=== PATIENT | male | born 1945 | race Caucasian/White ===

== ENCOUNTER 2016-08-03 11:51 | Inpatient (IN) | payer OTHER, SELFPAY ==
[~2016-08-03] VITALS: Ht 177.8 cm; Wt 86.2 kg
--- NOTE | ~2016-08-03 | EKG ---
[address] [address] ELECTROCARDIOGRAM REPORT Name: DEEPAK QUINTERO Room #: 441-P ADM IN M.R.#: [id number] Admission: 08/03/16 Attend Phys: Dennise Umanzor Discharge: Date of : 49 Report #: [id number] THIS REPORT FOR: //name// [facility] ED Test Date: 2016-08-03 Test Time: 12:57:16 Pat Name: DEEPAK QUINTERO Department: Room: [facility] Gender: M Hr Leader: [id number] : 1945 Requested By: Efren Poole Order Number: [id number] MD: Cliff Cooper Measurements Intervals [place] Rate: 142 P: [place]: QRS: -20 QRSD: 95 T: 35 QT: 325 QTc: 500 Interpretive Statements Atrial fibrillation with rapid V-rate Borderline left axis deviation Borderline low voltage, extremity leads Anteroseptal infarct, old No previous ECG available for comparison Electronically Signed On 08-03-2016 16:49:01 INFRASTRU[employer]URE SECURITY ARCHITECT by Cliff Cooper [email or web address] <ELECTRONICALLY SIGNED> By: Cliff Cooper MD 08/03/16 1649 [id number] Cliff Cooper MD /KENDRA
--- NOTE | ~2016-08-03 | 2DMMODE ---
[facility] [place] [address] 2 D/M-MODE ECHOCARDIOGRAM Name: DEEPAK QUINTERO Room #: 441-P [facility] IN .R.#: [id number] Admission: 08/03/16 Attend Phys: Dennise Price Discharge: Date of : 49 Date of Service: 08/04/16 0717 Report #: [id number] THIS REPORT FOR: //name// Transthoracic Echocardiography Ordering physician: Dennise Umanzor Referring Parvez Obrien Jetinder physician: [employer] Consultant: Sridevi Chairez Indications/History: Swelling, Afib. Hx: ETOH, tobacco abuse, HTN BP: 88 / 57 HR: 95bpm Height: 70in Weight: 200.6lb Study data: M-mode, complete 2D, complete spectral Doppler, and color Doppler. Location: Echo laboratory. Routine. Image quality was adequate. 2D measurements Normal Normal LVID ED 48.2mm 36-57 IVS ED 13.3mm 6-11 LVID ES 27.4mm 23-40 LVPW ED 13mm 6-11 LA volume 56ml/m2 16-28 AoRoot diam 35.5mm 21-37 index ED LVOT diameter 22mm 18-23 Findings: Left ventricle: The cavity size was normal. Wall thickness was increased in a pattern of mild LVH. Systolic function was normal. The estimated ejection fraction was in the range of 60% to 65%. Wall motion was normal. Right ventricle: The cavity size was mildly dilated. Systolic function was normal. Right atrium: The atrium was dilated. Left atrium: The atrium was dilated. Volume index: 56ml/m2 (S). Aortic valve: Mildly sclerotic leaflets. Doppler: There was no stenosis. Trivial regurgitation. Peak velocity: [facility] [address] [place] [address] 2 D/M-MODE ECHOCARDIOGRAM Name: DEEPAK QUINTERO Room #: 441-P ADM IN M.R.#: [id number] Admission: 08/03/16 Attend Phys: Dennise Price Discharge: Date of : 49 Date of Service: 08/04/16 0717 Report #: [id number] 192.4cm/s (S). Peak gradient: 14.8mm Hg (S). Mitral valve: Mildly thickened leaflets . Calcified submitral apparatus Doppler: There was no evidence for stenosis. Mild regurgitation. Peak E-wave velocity: 160.5cm/s. Peak gradient: 10.3mm Hg (D). Tricuspid valve: Structurally normal valve. Doppler: There was no evidence for stenosis. Moderate regurgitation. Regurgitant peak velocity: 284cm/s. Peak RV-RA gradient: 32mm Hg (S). Pulmonic valve: Structurally normal valve. Doppler: There was no evidence for stenosis. Mild regurgitation. Pericardium: A trace pericardial effusion was identified. Aorta: Aortic root: The aortic root was normal in size. Pulmonary artery: Systolic pressure was estimated to be 40mm Hg. Diastolic function: The study was not technically sufficient to allow evaluation of LV diastolic dysfunction due to atrial fibrillation. Systemic veins: Inferior vena cava: The vessel was dilated; the respirophasic diameter changes were blunted (< 50%). Conclusions 1. Left ventricle: Systolic function was normal. The estimated ejection fraction was in the range of 60% to 65%. Wall motion was normal. 2. Aortic valve: Mildly sclerotic leaflets. There was no stenosis. Trivial regurgitation. 3. Mitral valve: Mildly thickened leaflets . Calcified submitral apparatus Mild regurgitation. 4. Pericardium, extracardiac: A trace pericardial effusion was identified. 5. Pulmonary arteries: Systolic pressure was estimated to be 40mm Hg. <ELECTRONICALLY SIGNED> By: Jimmie Mijares MD, FAC 08/04/16 1001 0717 100 Jimmie Mijares MD, [facility] /jak
--- NOTE | ~2016-08-03 | EKG ---
[address] [address] ELECTROCARDIOGRAM REPORT Name: DEEPAK QUINTERO Room #: 441-P ADM IN M.R.#: [id number] Admission: 08/03/16 Attend Phys: Dennise Umanzor Discharge: Date of : 49 Report #: [id number] THIS REPORT FOR: //name// [facility] ED Test Date: 2016-08-03 Test Time: 13:06:59 Pat Name: DEEPAK QUINTERO Department: Room: [facility] Gender: M Psychiatric Lpn: [id number] : 1945 Requested By: Efren Poole Order Number: [id number] MD: Cliff Cooper Measurements Intervals [place] Rate: 100 P: 258 [place]: 149 QRS: -41 QRSD: 104 T: -7 QT: 378 QTc: 488 Interpretive Statements Ectopic atrial tachycardia, unifocal Left axis deviation Electronically Signed On 08-03-2016 16:50:04 GENETICS TEACHER by Cliff Cooper [email or web address] <ELECTRONICALLY SIGNED> By: Cliff Cooper MD 08/03/16 1650 1306 1306 MD LEONARD Franco
[~2016-08-03 11:51] MED LIST: ACETAMINOPHEN325 M1 PO; ALDACTONE100 MG PO; ASPIRIN325 PO; ATIVAN1 MG PO; BENADRYL ITCH28.3 G1 TP; BENADRYL25 MG PO; FLEXERIL PO; HYDROXYZINE HCL25 M2; IBUPROFEN 400400 M1; IBUPROFEN 600600 M1; IBUPROFEN200 M2 PO; MAG-OX 400 TAB400 MG PO; MEDROLDOSEPACK PO; MULTIVITAMINS1 EAC7 PO; NALTREXONE HCL50 MG PO; NEURONTIN 300300 M1 PO; NOHOMEMEDICATIONS; NORCO 5-325 TA1 EACH PO; PREDNISONE50 MG PO; PREVALITE PACKE1 PKT
[2016-08-03 11:52] VITALS: BP 110/76
[2016-08-03 12:40] LABS: HEMATOCRIT 36.6 % (42.0-52.0); HEMOGLOBIN 12.7 gm/dL (14.0-18.0); MCH 37.5 pg (26.0-34.0); MCHC 34.7 % (28.0-37.0); MCV 108.3 fL (80.0-100.0); PLATELET COUNT 117 thou/uL (150-400); RBC 3.38 mil/uL (4.50-6.00); RDW 13.6 % (10.5-14.5); WBC 6.4 thou/uL (4.0-11.0)
[2016-08-03 12:44] LABS: MANUAL DIFF YES
[2016-08-03 13:04] LABS: ABSOLUTE NEUTROPHILS 3.8 thou/uL (1.4-8.2); PLATELET ESTIMATE NORMAL; TOTAL CELL COUNT 100
[2016-08-03 14:36] LABS: INR 1.6; PROTIME 16.4 Seconds (9.3-11.4)
[2016-08-03 14:43] LABS: ALBUMIN 1.9 g/dL (3.4-5.0); ALKALINE PHOSPHATASE 155 U/L (46-116); ANION GAP 5 mmol/L (7-16); BUN 11 mg/dL (7-18); CALCIUM 8.2 mg/dL (8.5-10.1); CHLORIDE 98 mmol/L (98-107); CO2 31 mmol/L (21-32); CREATININE 0.8 mg/dL (0.6-1.3); GLUCOSE 106 mg/dL (70-99); MAGNESIUM 1.7 mg/dL (1.8-2.4); NT-PRO BRAIN NAT PEPTIDE 741 pg/mL (<300); PHOSPHORUS 2.9 mg/dL (2.5-4.9); POTASSIUM 3.3 mmol/L (3.5-5.1); SGOT 69 U/L (15-37); SGPT 25 U/L (30-65); SODIUM 134 mmol/L (136-145); TOTAL BILIRUBIN 7.3 mg/dL (<0.1-1.0); TOTAL PROTEIN 7.8 g/dL (6.4-8.2); TROPONIN-I < 0.04 ng/mL (<0.04-0.07)
[2016-08-03 14:44] LABS: ACETAMINOPHEN < 2 ug/mL (10-30)
[2016-08-03 14:45] LABS: SALICYLATE < 2.8 mg/dL (2.8-20.0)
[2016-08-03 15:04] LABS: NT-PRO BRAIN NAT PEPTIDE 741 pg/mL (<300)
[2016-08-03 15:18] VITALS: BP 98/76
[2016-08-03 20:30] VITALS: BP 108/74
[2016-08-03 22:36] LABS: MAGNESIUM 1.5 mg/dL (1.8-2.4); POTASSIUM 3.2 mmol/L (3.5-5.1)
[2016-08-04 01:45] VITALS: BP 91/47
[2016-08-04 06:30] VITALS: BP 102/63
[2016-08-04 06:57] LABS: HEMATOCRIT 34.5 % (42.0-52.0); HEMOGLOBIN 11.9 gm/dL (14.0-18.0); MCH 37.3 pg (26.0-34.0); MCHC 34.4 % (28.0-37.0); MCV 108.5 fL (80.0-100.0); RBC 3.18 mil/uL (4.50-6.00); RDW 13.9 % (10.5-14.5); WBC 5.6 thou/uL (4.0-11.0)
[2016-08-04 07:09] LABS: CREATININE 0.9 mg/dL (0.6-1.3); POTASSIUM 3.5 mmol/L (3.5-5.1)
[2016-08-04 07:10] LABS: CALCIUM 7.9 mg/dL (8.5-10.1)
[2016-08-04 07:11] LABS: INR 1.8
[2016-08-04 07:16] LABS: PROTIME 18.3 Seconds (9.3-11.4)
[2016-08-04 07:18] LABS: ALBUMIN 1.7 g/dL (3.4-5.0); TOTAL BILIRUBIN 5.4 mg/dL (<0.1-1.0); TOTAL PROTEIN 7.3 g/dL (6.4-8.2)
[2016-08-04 08:58] VITALS: BP 88/57
[2016-08-04 12:57] VITALS: BP 121/50
[2016-08-04 16:52] VITALS: BP 111/40
[2016-08-04 20:19] VITALS: BP 133/57
[2016-08-04 21:09] LABS: MAGNESIUM 1.4 mg/dL (1.8-2.4); POTASSIUM 3.7 mmol/L (3.5-5.1)
[2016-08-05 04:57] VITALS: BP 112/70
[2016-08-05 05:50] LABS: ALBUMIN 1.6 g/dL (3.4-5.0); CALCIUM 7.6 mg/dL (8.5-10.1); CREATININE 0.8 mg/dL (0.6-1.3); PHOSPHORUS 2.5 mg/dL (2.5-4.9); POTASSIUM 3.5 mmol/L (3.5-5.1)
[2016-08-05 09:29] VITALS: BP 125/62
[2016-08-05 12:26] VITALS: BP 111/61
[2016-08-05 16:35] VITALS: BP 138/79
[2016-08-05 20:27] VITALS: BP 96/67
[2016-08-06 04:33] VITALS: BP 104/61
[2016-08-06 09:19] VITALS: BP 114/70
[2016-08-06 13:06] VITALS: BP 103/68
[2016-08-06] MEDS ORDERED: PRADAXA75 MG PO (13:57)
[2016-08-06] MEDS ORDERED: DIGOXIN250 MCG PO (13:58)
[2016-08-06] MEDS ORDERED: CARDIZEM CD 18180 M3 PO (13:58)
[2016-08-06] MEDS ORDERED: LEVAQUIN 500 M500 M2 PO (14:00)
[2016-08-06 14:05] VITALS: BP 103/68
[2016-09-04] MEDS ORDERED: PLAVIX 75 MG TA75 M1 PO (12:54)
== END 2016-08-06 15:00 | disposition home or self-care (01) | DRG 291 ==
LOC: ER 11:51 → 4S 14:00 → EROBS 14:00 → 4S 15:51
PROVIDERS: Emergency Medicine; Hospitalist
DX: I11.0 Hypertensive heart disease with heart failure (principal); J18.9 Pneumonia, unspecified organism; K76.6 Portal hypertension; I48.91 Unspecified atrial fibrillation; I50.33 Acute on chronic diastolic (congestive) heart failure; F10.10 Alcohol abuse, uncomplicated; K74.60 Unspecified cirrhosis of liver; F17.210 Nicotine dependence, cigarettes, uncomplicated; M19.071 Primary osteoarthritis, right ankle and foot; Z96.1 Presence of intraocular lens; Z79.82 Long term (current) use of aspirin; Z79.899 Other long term (current) drug therapy; Z82.49 Family history of ischemic heart disease and other diseases of the circulatory system; Z91.81 History of falling; Z98.42 Cataract extraction status, left eye; Z98.41 Cataract extraction status, right eye; Z88.0 Allergy status to penicillin
CPT/HCPCS: 10100

== ENCOUNTER → 2017-05-16 | Outpatient (CLI) | payer OTHER ==
[~2017-05-16] MED LIST changes: +ASPIR 8181 MG PO; +CARDIZEM CD 18180 M3 PO; +CARDIZEM CD180 MG PO; +DIGOXIN250 MCG PO; +LEVAQUIN 500 M500 M2 PO; +PLAVIX 75 MG TA75 M1 PO; +PRADAXA75 MG PO
== END ==
LOC: CAT 15:40
DX: M48.061 Spinal stenosis, lumbar region without neurogenic claudication (principal)

== ENCOUNTER 2017-09-28 14:22 | Inpatient (IN) | payer OTHER ==
[~2017-09-28] VITALS: Ht 177.8 cm; Wt 86.4 kg
--- NOTE | ~2017-09-28 | HC ---
[facility] [place] [address] CONSULTATION Name: DEEPAK QUINTERO Room #: 364-P [facility] IN M.R.#: [id number] Admission: 09/28/17 Attend Phys: Abdoulaye Hernandez MD Discharge: 09/30/17 Date of : 49 Report #: [id number] THIS REPORT FOR: //name// CC: Abdoulaye Obrien DATE OF SERVICE: 09/29/2017 HISTORY OF PRESENT ILLNESS: The patient is a 72-year-old male with a history of end-stage liver disease due to alcohol abuse. Family members are present at this time. The patient is fairly lethargic, although he will try to answer some questions. He was brought into the hospital as he has been having decline both in mental status as well as increasing lower extremity edema and abdominal distention apparently. He has had previous paracentesis in the past. He has been on diuretics at home. He apparently is not following a low sodium diet or watching his liquid intake. In fact, his friend who checks on him on a daily basis, sometimes several times a day states he is actively drinking large amounts of alcohol at this time on a daily basis. He does report some abdominal distention and pain at this time. Apparently, he has also been having more frequent falls lately. There has been no history of bleeding. Also, it appears his appetite has been very poor. PAST MEDICAL HISTORY: End-stage liver disease, history of alcohol abuse, hypertension, ascites, encephalopathy, previous history of detached retina, umbilical hernia repair and right inguinal hernia repair. MEDICATIONS AT HOME: [place], p.r.n. Cardizem and aspirin. REVIEW OF SYSTEMS: Extremely limited due to the patient's lethargy but as per HPI. FAMILY HISTORY: Negative for colon cancer. SOCIAL HISTORY: Long history of alcohol abuse and again the patient is actively consuming alcohol on a daily basis at this point. Family members have also expressed he has no interest in discontinuing alcohol. No tobacco at this time. ALLERGIES: To PENICILLIN. PHYSICAL EXAMINATION: VITAL SIGNS: Temperature 97.6, pulse 109, blood pressure 91/58 and respiratory rate is 16. GENERAL: He is very lethargic. He will answer some questions but he is not oriented to time and place. HEENT: Sclerae are icteric. Oropharynx clear. There is muscle wasting noticed [address] [address] CONSULTATION Name: DEEPAK QUINTERO Room #: 364-P [facility] IN M.R.#: [id number] Admission: 09/28/17 Attend Phys: Abdoulaye Hernandez MD Discharge: 09/30/17 Date of : 49 Report #: [id number] in his face. NECK: Supple. CARDIOVASCULAR: Regular rate. CHEST: Clear to auscultation anteriorly bilaterally. ABDOMEN: Distended. He is not tense, but he has significant ascites. He is mildly tender to palpation. EXTREMITIES: Plus 1 pitting edema in the lower extremities with apparent venous stasis changes as well. LABORATORY DATA: Sodium 123, potassium 5.6, chloride 91, bicarbonate 24, BUN 57 and creatinine 1.8. Yesterday's creatinine was 1.7 and glucose 108. Total bilirubin 5.0. Alkaline phosphatase 120, ALT is 23, total protein 7.6 and albumin 1.6. Ammonia level 55 today and 54 yesterday. INR 1.7. WBC is 12.0, hemoglobin is 11.6 and platelet count is 217. KUB yesterday on admission, bilateral perihilar interstitial infiltrates, possible edema versus multifactorial pneumonia, moderate left pleural effusion and no evidence of mechanical obstruction. ASSESSMENT AND PLAN: 1. End-stage liver disease, long history of alcohol abuse. The patient continues to have daily alcohol use per family members. Overall, prognosis fairly poor. I had a long discussion with the family. At this point, we would recommend diuretics, is doing daily weights, monitoring electrolytes and volume status closely. His creatinine is up. This could be a sign of a hepatorenal. He has a Talbot in place. We will likely proceed with a paracentesis on Sunday for comfort measures as well. Need to follow his labs closely over the next 1-2 days to get a better idea how the patient is trending. 2. Encephalopathy. He is on lactulose at this time. We will add Xifaxan as well. Continue to monitor ammonia levels. This may be causing more lethargy. 3. History of alcohol abuse, need to watch for signs of withdrawal. Thank you for allowing me to participate in his care. <ELECTRONICALLY SIGNED> By: Olayinka Faria MD 10/08/17 0922 [id number] [id number] Olayinka Faria MD /nt
--- NOTE | ~2017-09-28 | HC ---
[facility] [place] [address] CONSULTATION Name: DEEPAK QUINTERO Room #: 364-P [facility] IN M.R.#: [id number] Admission: 09/28/17 Attend Phys: Abdoulaye Hernandez MD Discharge: Date of : 49 Report #: [id number] THIS REPORT FOR: //name// CC: Abdoulaye Obrien CHIEF COMPLAINT: Weakness. Nurses unable to place catheter. HISTORY OF PRESENT ILLNESS: The patient is a 72-year-old gentleman who is being seen today at the request Dr. Hernandez for Talbot catheter placement. Specifically, he was admitted with alcoholic liver disease. He has ascites and he is on a Lasix drip. The nurses were unable to place a Talbot catheter. He has had paracentesis before. Bladder scan was 621 mL. He really cannot answer questions accurately regarding his urination. ALLERGIES: PENICILLINS. ILLNESSES: Alcohol abuse, ascites, anasarca, atrial fibrillation, pleural effusion, cirrhosis, coagulopathy, community-acquired pneumonia, elevated INR, hyperbilirubinemia, hypomagnesemia and protein-calorie malnutrition. PAST SURGICAL HISTORY: Unable to obtain a history. REVIEW OF SYSTEMS: He denies shortness of breath or chest pain. PHYSICAL EXAMINATION: GENERAL: On exam, he is a comfortable-appearing gentleman, sitting up in bed. VITAL SIGNS: Temperature is 36.6, pulse is 106, respirations 19 and blood pressure is 96/54. ABDOMEN: Distended, consistent with ascites. GENITOURINARY: He is uncircumcised, with no acute intrascrotal pathology. LABORATORY DATA: White count 12.0 thousand, hemoglobin 11.6, hematocrit 103.2 and platelets 217,000. Sodium is 123, potassium 5.6, chloride 91, CO2 of 24, BUN 57, creatinine 1.8 and glucose 108. INR is 1.7, PT 16.9 and PTT 33.8. Urine is yellow, specific gravity is 1.025, pH is 5, negative for ketones, 2+ bilirubin, nitrites positive, leukocyte esterase negative, microscopic 0-2 red cells and 0-5 white cells. PROCEDURE: Under sterile conditions, I inserted the flexible cystoscope. There was edema at the meatus, probably from prior Talbot catheter attempts. The urethra was normal. The prostatic urethra was short, but with an elevated bladder neck. I was able to easily place the scope into the bladder. Of note, the bladder itself had a very small amount of urine in it. I placed a Glidewire through the scope and placed a 16-[place] catheter into the bladder and 10 mL of water was placed in the balloon. The safety wire and the scope were removed. I irrigated the catheter to be certain it would irrigate well and it [facility] [address] [place] [address] CONSULTATION Name: DEEPAK QUINTERO Room #: 364-P ADM IN M.R.#: [id number] Admission: 09/28/17 Attend Phys: Abdoulaye Hernandez MD Discharge: Date of : 49 Report #: [id number] irrigated well and was clear. IMPRESSION: Anasarca with liver failure. He did not have a full bladder. PLAN: Leave Talbot in for accurate fluid measurement. We will follow with you. <ELECTRONICALLY SIGNED> By: Hieu Cornejo MD 09/29/17 2233 1008 1041 Hieu Cornejo MD /nt
[2017-09-28 15:51] LABS: HEMATOCRIT 36.1 % (42.0-52.0); HEMOGLOBIN 12.2 gm/dL (14.0-18.0); MCH 34.6 pg (26.0-34.0); MCHC 33.8 g/dL (28.0-37.0); MCV 102.5 fL (80.0-100.0); PLATELET COUNT 215 thou/uL (150-400); RBC 3.52 mil/uL (4.50-6.00); RDW 13.7 % (10.5-14.5); WBC 13.1 thou/uL (4.0-11.0)
[2017-09-28 16:00] LABS: CREATININE 1.7 mg/dL (0.7-1.3); POTASSIUM 5.9 mmol/L (3.5-5.1)
[2017-09-28 16:02] VITALS: BP 123/67
[2017-09-28 16:02] LABS: URINE BILIRUBIN 2+ (Negative); URINE BLOOD NEGATIVE (Negative); URINE CLARITY CLEAR; URINE COLOR YELLOW; URINE GLUCOSE-RANDOM* TRACE (Negative); URINE KETONES NEGATIVE (Negative); URINE LEUKOCYTES-REFLEX NEGATIVE (Negative); URINE NITRITE-REFLEX POSITIVE (Negative); URINE PROTEIN (DIPSTICK) 1+ (Negative); URINE SPECIFIC GRAVITY 1.025 (1.005-1.035)
[2017-09-28 16:04] LABS: ICTOTEST (BILI CONFIRMATORY) Positive (Negative)
[2017-09-28 16:05] LABS: ALBUMIN 1.7 g/dL (3.4-5.0); DIRECT BILIRUBIN 3.4 mg/dL (<0.1-0.3); TOTAL BILIRUBIN 5.4 mg/dL (<0.1-1.0); TOTAL PROTEIN 8.3 g/dL (6.4-8.2)
[2017-09-28 16:06] LABS: APTT 33.8 Seconds (24.5-32.8); INR 1.7; PROTIME 16.9 Seconds (9.3-11.4)
[2017-09-28 16:08] LABS: SQUAMOUS 0-3 Few /LPF (0-3)
[2017-09-28 16:09] LABS: HYALINE CASTS 4-10 Moderate /LPF (None Seen); MUCUS 4-6 Moderate strn/LPF (None Seen)
[2017-09-28 16:10] LABS: URINE RBC 0-2 Rare /HPF (0-2); URINE WBC-REFLEX 0-5 Rare /HPF (0-5)
[2017-09-28 16:26] LABS: CELLULAR CASTS 4-10 Moderate /LPF (None Seen); CRYSTALS None Seen /LPF (None Seen)
[2017-09-28 17:51] VITALS: BP 121/54
[2017-09-28 19:37] VITALS: BP 114/58
[2017-09-28 20:00] VITALS: BP 123/71
[2017-09-28 23:57] VITALS: BP 133/59
[2017-09-29] VITALS (8 sets, daily range): BP systolic 69–108; BP diastolic 39–61
[2017-09-29 00:38] LABS: URINE BILIRUBIN 2+ (Negative); URINE BLOOD TRACE (Negative); URINE CLARITY SL CLOUDY; URINE COLOR BROWN; URINE GLUCOSE-RANDOM* NEGATIVE (Negative); URINE KETONES TRACE (Negative); URINE LEUKOCYTES-REFLEX NEGATIVE (Negative); URINE NITRITE-REFLEX NEGATIVE (Negative); URINE PROTEIN (DIPSTICK) TRACE (Negative)
[2017-09-29 00:42] LABS: ICTOTEST (BILI CONFIRMATORY) Positive (Negative)
[2017-09-29 04:41] LABS: ALBUMIN 1.6 g/dL (3.4-5.0); CALCIUM 8.9 mg/dL (8.5-10.1); CREATININE 1.8 mg/dL (0.7-1.3); POTASSIUM 5.6 mmol/L (3.5-5.1)
[2017-09-29 05:05] LABS: TOTAL PROTEIN 7.6 g/dL (6.4-8.2)
[2017-09-29 05:37] LABS: HEMATOCRIT 34.4 % (42.0-52.0); HEMOGLOBIN 11.6 gm/dL (14.0-18.0); MCH 34.6 pg (26.0-34.0); MCHC 33.6 g/dL (28.0-37.0); MCV 103.2 fL (80.0-100.0); RBC 3.34 mil/uL (4.50-6.00); RDW 13.7 % (10.5-14.5)
[2017-09-30 03:49] VITALS: BP 78/50
[2017-09-30 08:11] VITALS: BP 87/42
[2017-09-30 12:02] VITALS: BP 90/51
== END 2017-09-30 18:45 | DRG 432 ==
LOC: ER 14:22 → EROBS 17:06 → 3W 19:40
PROVIDERS: Emergency Medicine; Hospitalist; Nurse Practitioner Acute Care
DX: K70.40 Alcoholic hepatic failure without coma (principal); G93.40 Encephalopathy, unspecified; E46 Unspecified protein-calorie malnutrition; K56.7 Ileus, unspecified; E87.1 Hypo-osmolality and hyponatremia; I10 Essential (primary) hypertension; Z66 Do not resuscitate; K70.30 Alcoholic cirrhosis of liver without ascites; Z51.5 Encounter for palliative care; F17.210 Nicotine dependence, cigarettes, uncomplicated; I48.91 Unspecified atrial fibrillation; Z98.42 Cataract extraction status, left eye; Z98.41 Cataract extraction status, right eye; Z79.899 Other long term (current) drug therapy; Z88.0 Allergy status to penicillin; Z28.21 Immunization not carried out because of patient refusal; Z68.27 Body mass index [BMI] 27.0-27.9, adult
CPT/HCPCS: 10080